=== PATIENT | female | born 1960 | race Caucasian/White ===

== ENCOUNTER → 2023-05-10 | Outpatient (CLI) | payer SELFPAY | LOC: RAD 07:50 | PROVIDERS: ATTEND Internal Medicine | DX: Z82.49 Family history of ischemic heart disease and other diseases of the circulatory system (principal) ==

== ENCOUNTER → 2023-05-10 | Outpatient (CLI) | payer OTHER ==
--- NOTE | 2023-05-10 11:03 | Diagnostic Imaging Report ---
PROCEDURE: US carotid duplex, bilateral. TECHNIQUE: Multiple real-time grayscale images were obtained over the carotid arteries in various projections, bilaterally. Additional spectral analysis and color Doppler duplex images were also obtained. INDICATION: Dizziness. Minimal plaque is noted bilaterally. Velocities appear to be normal bilaterally. No velocity elevation or stenosis is detected. Both vertebral arteries show antegrade flow. IMPRESSION: No evidence of a hemodynamically significant stenosis. Parameters based on the consensus panel Abarca-Scale and Doppler ultrasound criteria published August 2003, Radiology, Volume 229. DOPPLER (peak systolic velocity M/S Right Left CCA .63 .78 ICA Proximal .53 .54 ICA Mid .75 .85 ICA Distal .61 1.01 RATIO 1.19 1.30 ECA .73 .61 VERT .60 .58 Dictated by: Dictated on workstation # [id number]
--- NOTE | 2023-05-10 12:57 | Diagnostic Imaging Report ---
INDICATION: Coronary calcium screening. TECHNIQUE: CT coronary calcium scoring study performed with noncontrast images of the heart followed by calculation of cardiac score. Dose reduction protocol was used. FINDINGS: There are no enlarged mediastinal or hilar nodes detected. Visualized portions of the lung mesa appeared clear, the entirety of the lungs are not included on the study. There is no pleural fluid. There is no significant coronary artery calcification. Coronary calcium score was 0. IMPRESSION: Coronary calcium score is 0, no significant coronary calcifications. Dictated by: Dictated on workstation # [id number]
== END ==
LOC: RAD 07:49
PROVIDERS: ATTEND Internal Medicine
DX: R42 Dizziness and giddiness (principal); Z82.49 Family history of ischemic heart disease and other diseases of the circulatory system
CPT/HCPCS: 75571; 93880